=== PATIENT | male | born 2000 | race Hispanic/Latino ===

== ENCOUNTER 2019-11-10 22:15 | Emergency (ER) | payer OTHER ==
[~2019-11-10] VITALS: Ht 177.8 cm; Wt 86.7 kg
[2019-11-10] MEDS ORDERED: diphenhydrAMINE 50MG CAP PO ONE (23:30)
[2019-11-10] MEDS ORDERED: HYDR1CRE93 TOP (23:32)
[2019-11-10 23:53] VITALS: BP 131/81
== END 2019-11-10 23:58 | disposition home or self-care (01) ==
LOC: M ED 22:15
DX: R22.32 Localized swelling, mass and lump, left upper limb (principal); T78.40XA Allergy, unspecified, initial encounter; X58.XXXA Exposure to other specified factors, initial encounter; Y92.89 Other specified places as the place of occurrence of the external cause; F17.210 Nicotine dependence, cigarettes, uncomplicated

== ENCOUNTER 2020-01-09 10:38 | Emergency (ER) | payer OTHER ==
[~2020-01-09 10:38] MED LIST: HYDR1CRE93 TOP
[2020-02-04 22:52] LABS: ALBUMIN 3.8 GM/DL (3.2-5.2); ALT/SGPT 41 U/L (12-78); BILIRUBIN,DIRECT 0.3 MG/DL (0.0-0.2); BILIRUBIN,TOTAL 1.2 MG/DL (0.2-1.0); BLOOD UREA NITROGEN 15 MG/DL (7-18); CALCIUM LEVEL 8.7 MG/DL (8.5-10.1); CARBON DIOXIDE LEVEL 29 MEQ/L (21-32); CHLORIDE LEVEL 106 MEQ/L (98-107); CK-MB VALUE MASS 1.9 NG/ML (<3.6); CPK CREATINE PHOSPHOKINASE 524 U/L (39-308); CREATININE FOR GFR 1.15 MG/DL (0.70-1.30); GLOMERULAR FILTRATION RATE > 60.0 (>60); GLUCOSE, FASTING 90 MG/DL (70-100); LIPASE 79 U/L (73-393); MB/CK RELATIVE INDEX 0.36 (< OR =4); POTASSIUM SERUM 3.9 MEQ/L (3.5-5.1); SODIUM LEVEL 141 MEQ/L (136-145); TROPONIN I < 0.02 NG/ML (< 0.10)
[2020-02-09 08:37] LABS: INR 1.12; PARTIAL THROMBOPLASTIN TIME 26.6 SECONDS (25.0-38.4); PROTHROMBIN TIME 14.7 SECONDS (11.8-14.0)
[2020-02-13 13:36] LABS: ALBUMIN 3.8 GM/DL (3.2-5.2); ALT/SGPT 41 U/L (12-78); BILIRUBIN,DIRECT 0.3 MG/DL (0.0-0.2); BILIRUBIN,TOTAL 1.2 MG/DL (0.2-1.0); CK-MB VALUE MASS 1.9 NG/ML (<3.6); CPK CREATINE PHOSPHOKINASE 524 U/L (39-308); LIPASE 79 U/L (73-393); MB/CK RELATIVE INDEX 0.36 (< OR =4); TROPONIN I < 0.02 NG/ML (< 0.10)
[2020-02-17 11:36] LABS: BASO # 0.1 10^3/uL (0.0-0.2); BASO % 0.7 % (0.0-1.0); EOS # 0.3 10^3/uL (0.0-0.5); EOS % 2.7 % (0.0-3.0); HEMATOCRIT 41.8 % (42.0-52.0); HEMOGLOBIN 13.3 g/dl (13.5-17.5); MEAN CORPUSCULAR HEMOGLOBIN 24.7 pg (27.0-33.0); MEAN CORPUSCULAR HGB CONC 31.8 g/dl (32.0-36.5); MEAN CORPUSCULAR VOLUME 77.7 fl (80.0-96.0); MONO # 0.9 10^3/uL (0.0-0.8); MONO % 8.7 % (0.0-5.0); NEUTROPHILS # 7.3 10^3/uL (1.5-8.5); NEUTROPHILS % 68.6 % (36.0-66.0); PLATELET COUNT, AUTOMATED 228 10^3/uL (150-450); RED BLOOD COUNT 5.38 10^6/uL (4.30-6.10); WHITE BLOOD COUNT 10.7 10^3/uL (4.0-10.0)
--- NOTE | 2020-02-23 12:00 | ECGEPIP ---
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
--- NOTE | 2020-03-01 15:48 | REP ---
RIGHT UPPER QUADRANT ULTRASOUND: HISTORY: Elevated bilirubin level. FINDINGS: Scanning through the right upper quadrant of the abdomen demonstrates 2 hyperechoic nonmobile foci at the fundus of the gallbladder measuring 0.3 and 0.2 cm, consistent with small polyps at the gallbladder fundus. No stone is seen. No sludge is observed. No pericholecystic fluid or wall thickening is seen. The common bile duct is normal, measuring 0.2 cm in greatest diameter. No focal liver lesion is seen. The liver is not enlarged. Limited views of the pancreas show no abnormality. There is no evidence of ascites or right renal abnormality. The right kidney measures 10.5 x 5.6 x 5.9 cm. IMPRESSION: Two very small gallbladder wall polyps. Otherwise negative right upper quadrant sonogram. MTDD
== END 2020-01-09 16:50 | disposition home or self-care (01) ==
LOC: M ED 10:38
DX: K92.0 Hematemesis (principal); K82.4 Cholesterolosis of gallbladder; R00.1 Bradycardia, unspecified; R74.8 Abnormal levels of other serum enzymes